=== PATIENT | male | born 1980 | race Caucasian/White ===

== ENCOUNTER → 2016-04-19 | Outpatient (CLI) | payer BC, OTHER ==
[~2016-04-19] MED LIST: /AUGM875TA; /CELE20CA; ACET65TA; COLA100C2; MILKSUS; No Historical Meds; PERC5TAB8; PERC7.5T8
--- NOTE | 2016-04-22 09:51 | SLEEPCENT ---
DATE OF PROCEDURE: 04/19/2016 ORDERED BY: JB Chau Nocturnal polysomnography was performed for the titration of pressure therapy in this patient with obstructive sleep apnea syndrome, apnea hypopnea index 6.1. For testing, the patient was fit with a ResMed Mirage FX nasal mask of wide dimension. 4 cm of water pressure were applied to the circuit and the lights were extinguished. 8 hours and 6 minutes of data were reviewed. There were 401 minutes of sleep identified. Sleep latency was prolonged at 31. Rapid eye movement (REM) latency was normal at 94 minutes. Sleep architecture improved with optimal pressure therapy. There were 4 REM periods appreciated. Overall sleep efficiency was 83%. The patient's electrocardiogram (EKG) showed a sinus rhythm with an average heart rate of 56 beats per minute. Electroencephalogram (EEG) showed fairly normal waveforms for awake and sleep. No focal events were identified. Respiratory events were fully palliated with CPAP at pressure of +5. Limb activity was minimal. Remaining measures of sleep physiology were normal. IMPRESSION: Obstructive sleep apnea syndrome (G47.33). RECOMMENDATION: Nightly use of pressure therapy 5 cm of water.
== END ==
LOC: M SLEEP 19:45
PROVIDERS: ATTEND Nurse Practitioner Adult Health
DX: G47.33 Obstructive sleep apnea (adult) (pediatric) (principal)

== ENCOUNTER → 2017-11-03 | Outpatient (CLI) | payer BC, OTHER | LOC: M SLEEP 19:49 | DX: G47.33 Obstructive sleep apnea (adult) (pediatric) (principal) | CPT/HCPCS: 95811 ==

== ENCOUNTER 2017-12-06 19:08 | Emergency (ER) | payer BC, OTHER | END 2017-12-06 20:09 | disposition home or self-care (01) | LOC: M ED 19:08 | DX: S80.01XA Contusion of right knee, initial encounter (principal); X58.XXXA Exposure to other specified factors, initial encounter; Y92.099 Unspecified place in other non-institutional residence as the place of occurrence of the external cause; Y93.9 Activity, unspecified; Y99.9 Unspecified external cause status; Z72.0 Tobacco use; Z79.899 Other long term (current) drug therapy | CPT/HCPCS: 73564 ==

== ENCOUNTER 2020-02-25 00:55 | Emergency (ER) | payer OTHER, BC ==
[~2020-02-25] VITALS: Ht 193 cm; Wt 144.4 kg
[~2020-02-25 00:55] MED LIST changes: -/CELE20CA; +CELE1CAP4; +IBUP-1022 PO
[2020-02-25] MEDS ORDERED: ACET-683 PO (02:22)
[2020-02-25] MEDS ORDERED: IBUP80TA PO (02:57)
[2020-02-25] MEDS ORDERED: IBUPROFEN 800 MG TAB PO ONE (03:00)
[2020-02-25 03:31] VITALS: BP 158/94
[2020-02-25] MEDS ORDERED: LIDO5DIS41 TOP (14:59)
[2020-02-25] MEDS ORDERED: CYCL-707 PO (15:00)
== END 2020-02-25 03:34 | disposition home or self-care (01) ==
LOC: M ED 00:55
DX: Z20.828 Contact with and (suspected) exposure to other viral communicable diseases (principal); M25.512 Pain in left shoulder
CPT/HCPCS: 99283; U0003

== ENCOUNTER 2020-02-25 14:07 | Emergency (ER) | payer OTHER, BC ==
[~2020-02-25] VITALS: Ht 193 cm; Wt 141.8 kg
[~2020-02-25 14:07] MED LIST changes: +ACET-683 PO; +IBUP80TA PO
[2020-02-25 14:08] VITALS: BP 143/89
[2020-02-25] MEDS ORDERED: methylPREDNISolone 125MG 2ML VIAL IM ONE (14:45)
[2020-02-25] MEDS ORDERED: LIDOCAINE 5% (LIDODERM) PATCH TD ONE (14:45)
[2020-02-25] MEDS ORDERED: LIDO5DIS41 TOP (14:59)
[2020-02-25] MEDS ORDERED: KETOROLAC 60MG 2ML VIAL IM ONE (15:00)
[2020-02-25] MEDS ORDERED: CYCL-707 PO (15:00)
[2020-02-25] MEDS ORDERED: **NOTE PATIENT COMMENT** MISC XX SCH (21:00)
== END 2020-02-25 15:24 | disposition home or self-care (01) ==
LOC: M ED 14:07
DX: M25.512 Pain in left shoulder (principal); F17.200 Nicotine dependence, unspecified, uncomplicated
CPT/HCPCS: 96372; 99283; J1885; J2930

== ENCOUNTER 2021-09-06 08:05 | Emergency (ER) | payer BC, OTHER ==
[~2021-09-06] VITALS: Ht 193 cm; Wt 155.3 kg
[2021-09-06 08:05] VITALS: BP 119/80
[~2021-09-06 08:05] MED LIST changes: +CYCL-707 PO; +LIDO5DIS41 TOP
[2021-09-06] MEDS ORDERED: METH-1164 PO (08:30)
== END 2021-09-06 08:40 | disposition home or self-care (01) ==
LOC: M ED 08:05
DX: M54.50 Low back pain, unspecified (principal); F17.290 Nicotine dependence, other tobacco product, uncomplicated

== ENCOUNTER → 2023-02-15 | Outpatient (CLI) | payer BC, OTHER ==
[~2023-02-15] MED LIST changes: +METH-1164 PO
== END ==
LOC: M SLEEP 20:00
PROVIDERS: ATTEND Physician Assistant
DX: G47.33 Obstructive sleep apnea (adult) (pediatric) (principal)

== ENCOUNTER → 2023-03-19 | Outpatient (CLI) | payer BC, OTHER | LOC: M SLEEP 20:00 | PROVIDERS: ATTEND Physician Assistant | DX: G47.33 Obstructive sleep apnea (adult) (pediatric) (principal) ==

== ENCOUNTER → 2023-04-30 | Outpatient (REF) | payer OTHER ==
[2023-05-01 16:09] LABS: TESTOSTERONE FREE (DIRECT) 4.6 pg/mL (6.8-21.5)
== END ==
LOC: M LAB REF 12:21
PROVIDERS: ATTEND Physician Assistant Medical
DX: R68.82 Decreased libido (principal)

== ENCOUNTER → 2023-05-28 | Outpatient (REF) | payer OTHER ==
[2023-05-29 12:09] LABS: TESTOSTERONE FREE (DIRECT) 4.1 pg/mL (6.8-21.5)
== END ==
LOC: M LAB REF 11:48
PROVIDERS: ATTEND Physician Assistant Medical
DX: R68.82 Decreased libido (principal)